=== PATIENT | male | born 1950 | race Caucasian/White ===

== ENCOUNTER → 2023-12-10 15:16 | Outpatient (REF) | payer MEDICARE, BC, SELFPAY | LOC: HWRAD 15:16 | PROVIDERS: ATTENDING PHYSICIAN Family Medicine | DX: J32.4 Chronic pansinusitis (principal); R51.9 Headache, unspecified | CPT/HCPCS: 70486 ==

== ENCOUNTER → 2023-12-17 11:07 | Outpatient (REF) | payer MEDICARE, BC, SELFPAY | LOC: HWRAD 11:07 | PROVIDERS: ATTENDING PHYSICIAN Family Medicine | DX: R05.1 Acute cough (principal) | CPT/HCPCS: 71046 ==

== ENCOUNTER → 2024-07-22 10:18 | Outpatient (REF) | payer MEDICARE, BC, SELFPAY | LOC: HWRCS 10:18 | PROVIDERS: ATTENDING PHYSICIAN Internal Medicine Cardiovascular Disease; FAMILY PHYSICIAN Family Medicine | DX: I63.9 Cerebral infarction, unspecified (principal); Z95.818 Presence of other cardiac implants and grafts; I77.810 Thoracic aortic ectasia; Z86.73 Personal history of transient ischemic attack (TIA), and cerebral infarction without residual deficits | CPT/HCPCS: 93306 ==

== ENCOUNTER → 2024-08-19 11:08 | Outpatient (REF) | payer MEDICARE, BC, SELFPAY | LOC: RAD 11:08 | PROVIDERS: ATTENDING PHYSICIAN Orthopaedic Surgery; FAMILY PHYSICIAN Family Medicine | DX: Z95.818 Presence of other cardiac implants and grafts (principal); Z96.652 Presence of left artificial knee joint; M17.12 Unilateral primary osteoarthritis, left knee | CPT/HCPCS: 76882 ==